=== PATIENT | male | born 1990 | race Caucasian/White ===

== ENCOUNTER 2022-05-26 18:46 | Emergency (ER) | payer SELFPAY ==
[2022-05-26 19:20] VITALS: BP 128/85; PULSE 76; RESP 19; TEMP 98.6; BMI 18.3
[2022-05-26] MEDS ORDERED: IBUPROFEN 600 MG TABLET (FP) PO ONE ×2 (19:54→19:55)
== END 2022-05-26 20:47 | disposition home or self-care (01) ==
LOC: JERFT 18:46
DX: M20.012 Mallet finger of left finger(s) (principal)
CPT/HCPCS: 73140-TC-LT-FY; 99283-25